=== PATIENT | female | born 1955 | race Caucasian/White ===

== ENCOUNTER → 2019-04-29 | Outpatient (CLI) | payer BC ==
[2019-04-29 10:52] LABS: HCT 39.1 % (34.0-46.0); HGB 13.3 gm/dL (11.4-16.0); MCH 35.2 pg (25.0-35.0); MCV 103.5 fL (80.0-100.0); Macrocytosis Slight; Mean Platelet Volume 5.9; Platelet Count 177 k/uL (150-450); RBC 3.78 m/uL (3.80-5.40); RDW 11.6 % (11.5-15.5); WBC 4.2 k/uL (3.8-10.6)
[2019-04-29 11:46] LABS: Eosinophils # (M) 0.13 k/uL (0-0.7); Lymphocytes # (M) 1.76 k/uL (1.0-4.8); Monocytes # (M) 0.29 k/uL (0-1.0); Neutrophils % (M) 48 %; Nucleated Red Blood Cells 0 /100 WBC (0-0); Total Cells Counted 100
[2019-04-29 16:46] LABS: T4, Free (Free Thyroxine) 1.2 ng/dL (0.80-1.80)
[2019-04-29 16:52] LABS: African American GFR (CKD) 112.4 (60.0-200.0); Albumin/Globulin Ratio 1.6 (1.60-3.17); Anion Gap 6.2 mmol/L (4.00-12.00); Calcium 8.8 mg/dL (8.7-10.3); Carbon Dioxide 27.8 mmol/L (21.6-31.8); Chol/HDL Ratio 2.94; Globulin 2.5 g/dL (1.6-3.3); LDL Cholesterol,Calculated 119.4 mg/dL (0.0-131.0); Potassium 4.6 mmol/L (3.5-5.5); Total Bilirubin 0.7 mg/dL (0.2-1.2); Total Protein 6.5 g/dL (6.2-8.2); VLDL Calculation 12.6 mg/dL (5.00-40.00)
== END | disposition home or self-care (01) ==
LOC: LABWHC1 08:59
PROVIDERS: ATTEND Nurse Practitioner Women's Health
DX: Z00.00 Encounter for general adult medical examination without abnormal findings (principal); I10 Essential (primary) hypertension; E78.00 Pure hypercholesterolemia, unspecified; Z79.899 Other long term (current) drug therapy
CPT/HCPCS: 36415; 80053; 80061; 84439; 84443; 85025

== ENCOUNTER → 2019-05-14 | Outpatient (CLI) | payer BC ==
--- NOTE | 2019-05-20 11:10 | MM ---
Reason for exam: screening (asymptomatic). Last mammogram was performed 2 years and 11 months ago. History: Patient is postmenopausal and is nulliparous. Cyst aspiration. Physical Findings: A clinical breast exam by your physician is recommended on an annual basis and results should be correlated with mammographic findings. MG Screening Mammo w CAD Bilateral CC and MLO view(s) were taken. Prior study comparison: June 22, 2016, mammogram. June 15, 2015, mammogram. The breast tissue is heterogeneously dense. This may lower the sensitivity of mammography. There is chronic nodularity in the right breast laterally. No significant changes when compared with prior studies. ASSESSMENT: Benign, BI-RAD 2 RECOMMENDATION: Routine screening mammogram of both breasts in 1 year.
== END | disposition home or self-care (01) ==
LOC: RADMAMWWP 07:05
PROVIDERS: ATTEND Family Medicine
DX: Z12.31 Encounter for screening mammogram for malignant neoplasm of breast (principal)
CPT/HCPCS: 77067

== ENCOUNTER → 2019-05-15 | Outpatient (CLI) | payer BC ==
--- NOTE | 2019-05-15 09:26 | XR ---
EXAMINATION TYPE: XR foot complete LT DATE OF EXAM: 05/15/2019 CLINICAL HISTORY: pain TECHNIQUE: Frontal, lateral and oblique images of the left foot are obtained. COMPARISON: None. FINDINGS: There is no acute fracture/dislocation evident. The joint spaces appear within normal lopez its. The overlying soft tissue appears unremarkable. IMPRESSION: There is no acute fracture or dislocation. ICD 10 NO FRACTURE, INITIAL EVALUATION
--- NOTE | 2019-05-15 10:02 | XR ---
EXAMINATION TYPE: XR lumbosacral spine min 4V DATE OF EXAM: 05/15/2019 CLINICAL HISTORY: pain COMPARISON: NONE TECHNIQUE: Frontal, lateral, and oblique images of the lumbar spine are obtained. FINDINGS: There are 5 lumbar type vertebral bodies identified. The lumbar spine shows satisfactory alignment without evidence of acute fracture or dislocation. Vertebral body heights are within normal limits. Mild to moderate scattered degenerative disc space narrowing and spondylosis. The overlyin g soft tissue appears unremarkable. IMPRESSION: No acute fracture or dislocation is seen in the lumbar spine.ICD 10 NO FRACTURE, INITIAL EVALUATION
--- NOTE | 2019-05-15 10:38 | BD ---
EXAMINATION TYPE: Axial Bone Density DATE OF EXAM: 05/15/2019 COMPARISON: NONE CLINICAL HISTORY: 63 YR OLD FEMALE....ICD-10 CODE: Z78.0 POST MENOPAUSAL Height: 68 Weight: 189 FRAX RISK QUESTIONS: Family History (Parent hip fracture): YES Glucocorticoids (More than 3mos): YES (Ex: prednisone, prednisolone, methylprednisolone, dexamethasone, and hydrocortisone). History of Fracture in Adulthood: YES RISK FACTORS HISTORY OF: LT HUMERUS AT 61 YRS OLD Family History of Osteoporosis: YES, MOTHER WITH HIP FX AND ARMS Postmenopausal woman: YES AT ABOUT 50 YRS OLD ONLY BCPs LONG AGO Hyperparathyroidism: NO Adrenal Insufficiency: NO MEDICATIONS: Prednisone or other steroids: STEROIDS FOR EYES AND PREDNISONE ON AND OFF FOR ALLERGIES AND INFLAMMAT ION Additional Medications: BP MEDS, MULTIVITAMIN WITH CALCIUM AND D Additional History: CATARACT EYE SURG RECENTLY EXAM MEASUREMENTS: Bone mineral densitometry was performed using the [employer] System. Bone mineral density as measured about the Lumbar spine is: ----- L1-L4(G/cm2): 1.016 T Score Values are as follows: ----- L1: -2.6 ----- L2: -0.8 ----- L3: -1.2 ----- L4: -1.1 ----- L1-L4: -1.4 Bone mineral density FIRST DEXA AT [facility] Bone mineral density about the R hip (g/cm2): 0.906 Bone mineral density about the L hip (g/cm2): 0.903 T Score values are as follows: -----R Neck: -1.2 -----L Neck: -1.1 -----R Total: -0.8 -----L Total: -0.8 Bone mineral density FIRST DEXA AT [facility] FRAX%s: THERE IS A 37.4% CHANCE FOR A MAJOR OSTEOPOROTIC FX AND A 2.0% FOR HIP.....PROBABILITY FOR FX IN 10 YRS TIME IMPRESSION: Osteopenia about the lumbar spine. NOTE: T-SCORE=SD OF THE YOUNG ADULT MEAN.
== END | disposition home or self-care (01) ==
LOC: RADBDWWP 07:28
PROVIDERS: ATTEND Family Medicine
DX: M54.5 Low back pain (principal); M79.672 Pain in left foot; M85.88 Other specified disorders of bone density and structure, other site; Z78.0 Asymptomatic menopausal state
CPT/HCPCS: 72110; 77080

== ENCOUNTER 2019-10-10 11:24 | Inpatient (IN) | payer BC ==
[2019-10-10] MEDS ORDERED: LORazepam 2 MG/ML INJ IV PRN ×3 (12:16)
[2019-10-10] MEDS ORDERED: THIAMINE 100 MG/ML 2 ML VIAL IM STA (12:16)
--- NOTE | 2019-10-10 12:17 | ED ---
General Adult HPI - General Chief complaint: Altered Mental Status Stated complaint: ETOH Time Seen by Provider: 10/10/19 11:35 Source: patient, EMS, RN notes reviewed, old records reviewed Mode of arrival: EMS Limitations: altered mental status - History of Present Illness Initial comments: 64-year-old female presenting for alcohol intoxication, delusional thought pattern. Patient was found outside underneath of her brush. She states that this coming to an end. She makes several comments about politics and yazidi. She does admit to alcohol consumption. She has no pain complaints. She is alert and oriented 2. She does have previous history of alcohol abuse. - Related Data Home Medications Medication Instructions Recorded Confirmed Ibuprofen [Motrin] 200 - 400 mg PO Q6HR PRN 06/17/17 06/17/17 Losartan-Hctz 50-12.5 mg [Hyzaar 1 tab PO DAILY 06/17/17 06/17/17 50-12.5] Multivitamins, Thera [Multivitamin 1 tab PO DAILY 06/17/17 06/17/17 (formulary)] Previous Rx's Medication Instructions Recorded HYDROcodone/APAP 5-325MG [[place] 1 - 2 tab PO Q6HR PRN #14 tab 06/17/17 5-325] Ibuprofen [Motrin] 800 mg PO Q4-6H #30 tab 06/17/17 Allergies Allergy/AdvReac Type Severity Reaction Status Date / Time latex Allergy Rash/Hives Verified 10/10/19 11:30 peanut Allergy Unknown Verified 10/10/19 11:30 perfume Allergy Dyspnea Verified 10/10/19 11:30 Sulfa (Sulfonamide Allergy Rash/Hives Verified 10/10/19 11:30 Antibiotics) venom-wasp Allergy Anaphylaxis Verified 10/10/19 11:30 wheat Allergy Rash/Hives Verified 10/10/19 11:30 Review of Systems ROS Statement: Those systems with pertinent positive or pertinent negative responses have been documented in the HPI. ROS Other: All systems not noted in ROS Statement are negative. Past Medical History Past Medical History: Hypertension, Pneumonia History of Any Multi-Drug Resistant Organisms: None Reported Additional Past Surgical History / Comment(s): D &C, carpal tunnel surgery Past Psychological History: No Psychological Hx Reported Smoking Status: Never smoker Past Alcohol Use History: Occasional Past Drug Use History: None Reported General Exam Limitations: altered mental status General appearance: alert, appears intoxicated Head exam: Present: atraumatic, normocephalic Eye exam: Present: normal appearance, PERRL ENT exam: Present: mucous membranes dry Neck exam: Present: normal inspection. Absent: tenderness, meningismus Respiratory exam: Present: normal lung sounds bilaterally. Absent: respiratory distress, wheezes Cardiovascular Exam: Present: regular rate, normal rhythm GI/Abdominal exam: Present: soft. Absent: distended, tenderness, guarding Extremities exam: Present: normal inspection, normal capillary refill. Absent: pedal edema, calf tenderness Neurological exam: Present: alert, oriented X3, CN II-XII intact. Absent: motor sensory deficit Psychiatric exam: Present: normal affect, normal mood Skin exam: Present: warm, dry, intact. Absent: cyanosis, diaphoretic Course Vital Signs 10/10/19 10/10/19 10/10/19 11:30 12:38 12:41 Temperature 97.0 F L Pulse Rate 85 80 78 Respiratory 20 18 16 Rate Blood Pressure 163/99 160/84 104/60 O2 Sat by Pulse 98 98 97 Oximetry Medical Decision Making - Medical Decision Making 64-year-old female presenting with alcohol intoxication, bizarre behavior. Patient is intoxicated on exam, her thoughts are quite delusional. Uncertain of her baseline mental status, uncertain if she has a history of psychiatric disease. This may be related to alcohol intoxication. Alcohol level is 330. She is clinically dehydrated. She is placed on IV hydration, given thiamine. Placed on a CIWA scale. She will be admitted, case is discussed with Dr. Adair who will admit. Psychiatry has been placed on consult. - Lab Data Result diagrams: 10/10/19 12:15 Lab Results 10/10/19 10/10/19 Range/Units 12:15 12:24 Sodium 146 H (137-145) mmol/L Potassium 4.6 (3.5-5.1) mmol/L Chloride 107 (98-107) mmol/L Carbon Dioxide 31 H (22-30) mmol/L Anion Gap 8 mmol/L BUN 11 (7-17) mg/dL Creatinine 0.56 (0.52-1.04) mg/dL Est GFR (CKD-EPI)AfAm >90 (>60 ml/min/1.73 sqM) Est GFR (CKD-EPI)NonAf >90 (>60 ml/min/1.73 sqM) Glucose 112 H (74-99) mg/dL Calcium 8.9 (8.4-10.2) mg/dL Total Bilirubin 0.3 (0.2-1.3) mg/dL AST 57 H (14-36) U/L ALT 61 H (4-34) U/L Alkaline Phosphatase 70 (38-126) U/L Total Protein 8.0 (6.3-8.2) g/dL Albumin 4.4 (3.5-5.0) g/dL Urine Color Light Yellow Urine Appearance Clear (Clear) Urine pH 5.5 (5.0-8.0) Ur Specific [place] 1.004 (1.001-1.035) Urine Protein Negative (Negative) Urine Glucose (UA) Negative (Negative) Urine Ketones Negative (Negative) Urine Blood Negative (Negative) Urine Nitrite Negative (Negative) Urine Bilirubin Negative (Negative) Urine Urobilinogen <2.0 (<2.0) mg/dL Ur Leukocyte Esterase Large H (Negative) Urine RBC 3 (0-5) /hpf Urine WBC 6 H (0-5) /hpf Ur Squamous Epith Cells 2 (0-4) /hpf Urine Bacteria Rare H (None) /hpf Serum Alcohol 334 H* mg/dL Disposition Clinical Impression: Alcoholic intoxication, Altered mental status Disposition: ADMITTED IP TO THIS [facility] Condition: Stable Is patient prescribed a controlled substance at d/c from ED?: No Referrals: Alex Monet Jr, [Primary Care Provider] - 1-2 days Decision to Admit Reason: Admit from EC Decision Date: 10/10/19 Decision Time: 13:19
[2019-10-10 12:44] LABS: ALT 61 U/L (4-34); AST 57 U/L (14-36); African American GFR (CKD) >90 (>60 ml/min/1.73 sqM); Albumin 4.4 g/dL (3.5-5.0); Alkaline Phosphatase 70 U/L (38-126); Anion Gap 8 mmol/L; Blood Urea Nitrogen 11 mg/dL (7-17); Calcium 8.9 mg/dL (8.4-10.2); Carbon Dioxide 31 mmol/L (22-30); Chloride 107 mmol/L (98-107); Glucose 112 mg/dL (74-99); Non-African American GFR(CKD) >90 (>60 ml/min/1.73 sqM); Potassium 4.6 mmol/L (3.5-5.1); Sodium 146 mmol/L (137-145); Total Bilirubin 0.3 mg/dL (0.2-1.3)
[2019-10-10 12:55] LABS: Appearance,Urine Clear (Clear); Bacteria,Urine Rare /hpf; Bilirubin,Urine Negative (Negative); Blood,Urine Negative (Negative); Color,Urine Light Yellow; Glucose,Urine (UA) Negative (Negative); Ketones,Urine Negative (Negative); Leukocyte Esterase,Urine Large (Negative); Nitrite,Urine Negative (Negative); PH, Urine 5.5 (5.0-8.0); Protein,Urine Negative (Negative); RBC,Urine 3 /hpf (0-5); Specific Gravity,Urine 1.004 (1.001-1.035); Squamous Epithelial Cell,Urine 2 /hpf (0-4); Urobilinogen,Urine <2.0 mg/dL (<2.0); WBC,Urine 6 /hpf (0-5)
[2019-10-10 13:00] LABS: Alcohol 334 mg/dL
--- NOTE | 2019-10-10 13:05 | CT ---
EXAMINATION TYPE: CT brain wo con DATE OF EXAM: 10/10/2019 COMPARISON: None INDICATION: Altered mental status, ETOH DLP: 1099.4 mGycm, Automated exposure control for dose reduction was used. CONTRAST: None CT of the brain is performed utilizing 3 mm thick sections through the posterior fossa and 3 mm thick sections through the remaining calvarium. Study is performed within 24 hours of arrival to the hosp [facility]. No abnormal hyperdensity is present to suggest an acute intracranial hemorrhage. No mass lesion is evident. No acute infarcts are evident. Ventricles and sulci are appropriate for the patient age. Paranasal sinuses and mastoid air cells within the [id number] are clear. IMPRESSIONS: 1. Normal CT Brain
[2019-10-10] MEDS ORDERED: NALOXONE 0.4 MG/ML 1 ML VIAL IV PRN (13:17)
[2019-10-10 13:23] LABS: Amphetamine Screen,Urine Not Detected (NotDetected); Barbiturate Screen,Urine Not Detected (NotDetected); Benzodiazepines Screen,Urine Not Detected (NotDetected); Cocaine Screen,Urine Not Detected (NotDetected); Methadone Screen, Urine Not Detected (NotDetected); Opiate Screen,Urine Not Detected (NotDetected); Oxycodone Screen, Urine Not Detected (NotDetected); Phencyclidine Screen,Urine Not Detected (NotDetected); Tricyclic Antidepressant,Urine Not Detected (NotDetected); Urn Cannabinoid Scrn Not Detected (NotDetected)
[2019-10-10 13:33] LABS: HCT 44.2 % (34.0-46.0); HGB 14.8 gm/dL (11.4-16.0); MCH 33.9 pg (25.0-35.0); MCHC 33.5 g/dL (31.0-37.0); Mean Platelet Volume 6.4; Platelet Count 275 k/uL (150-450); RBC 4.38 m/uL (3.80-5.40); RDW 11.5 % (11.5-15.5); WBC 3.8 k/uL (3.8-10.6)
[2019-10-10 14:11] LABS: Eosinophils # (M) 0.08 k/uL (0-0.7); Lymphocytes # (M) 2.36 k/uL (1.0-4.8); Monocytes # (M) 0.19 k/uL (0-1.0); Neutrophils # (M) 1.18 k/uL (1.3-7.7); Neutrophils % (M) 31 %; Nucleated Red Blood Cells 0 /100 WBC (0-0); Total Cells Counted 100
--- NOTE | 2019-10-10 16:15 | P.HPIM ---
History of Present Illness H&P Date: 10/10/19 Chief Complaint: alcohol intoxication 64-year-old patient found outside under pierce. Presented emergency room delusional thoughts with apparent alcohol intoxitcation. she was oriented 2 Review of Systems ROS unobtainable: due to mental status Past Medical History Past Medical History: Hypertension, Pneumonia History of Any Multi-Drug Resistant Organisms: None Reported Additional Past Surgical History / Comment(s): D &C, carpal tunnel surgery Past Psychological History: No Psychological Hx Reported Smoking Status: Never smoker Past Alcohol Use History: Occasional Past Drug Use History: None Reported Medications and Allergies Home Medications Medication Instructions Recorded Confirmed Type Furosemide [Lasix] 20 mg PO DAILY 10/10/19 10/10/19 History Ibuprofen [Motrin] 800 mg PO Q8H 10/10/19 10/10/19 History Metoprolol Succinate (ER) [Toprol 50 mg PO DAILY 10/10/19 10/10/19 History Xl] Allergies Allergy/AdvReac Type Severity Reaction Status Date / Time latex Allergy Rash/Hives Verified 10/10/19 14:08 peanut Allergy Unknown Verified 10/10/19 14:08 perfume Allergy Dyspnea Verified 10/10/19 14:08 Sulfa (Sulfonamide Allergy Rash/Hives Verified 10/10/19 14:08 Antibiotics) venom-wasp Allergy Anaphylaxis Verified 10/10/19 14:08 wheat Allergy Rash/Hives Verified 10/10/19 14:08 Physical Exam Vitals: Vital Signs Temp Pulse Pulse Resp BP BP Pulse Ox 10/10/19 14:33 98.2 F 101 H 20 141/98 95 10/10/19 14:07 72 18 110/61 97 10/10/19 12:41 78 16 104/60 97 10/10/19 12:38 80 18 160/84 98 10/10/19 11:30 97.0 F L 85 20 163/99 98 Intake and Output 10/10/19 10/10/19 10/10/19 06:59 14:59 22:59 Other: Weight 160 kg - Constitutional General appearance: disheveled, mild distress - EENT Eyes: PERRLA ENT: normal oropharynx - Neck Carotids: right: upstroke delayed - Respiratory Respiratory: bilateral: CTA - Cardiovascular Rhythm: regular Heart sounds: normal: S1, S2 - Gastrointestinal General gastrointestinal: normal bowel sounds - Neurologic Neurologic: CNII-XII intact - Musculoskeletal Musculoskeletal: strength equal bilaterally - Psychiatric delusional thoughts, oriented 2 Results CBC & Chem 7: 10/10/19 12:15 10/10/19 12:15 Labs: Abnormal Lab Results - Last 24 Hours (Table) 10/10/19 10/10/19 10/10/19 Range/Units 12:15 12:15 12:24 MCV 101.0 H (80.0-100.0) fL Neutrophils # (Manual) 1.18 L (1.3-7.7) k/uL Sodium 146 H (137-145) mmol/L Carbon Dioxide 31 H (22-30) mmol/L Glucose 112 H (74-99) mg/dL AST 57 H (14-36) U/L ALT 61 H (4-34) U/L Ur Leukocyte Esterase Large H (Negative) Urine WBC 6 H (0-5) /hpf Urine Bacteria Rare H (None) /hpf Serum Alcohol 334 H* mg/dL Thrombosis Risk Factor Assmnt - DVT/VTE Prophylaxis DVT/VTE Prophylaxis: Low risk, early ambulation encouraged Assessment and Plan (1) Alcoholic intoxication Current Visit: Yes Status: Acute Code(s): F10.929 - ALCOHOL USE, UNSPECIFIED WITH INTOXICATION, UNSPECIFIED SNOMED Code(s): 68506007 (2) Altered mental status Current Visit: Yes Status: Acute Code(s): R41.82 - ALTERED MENTAL STATUS, UNSPECIFIED SNOMED Code(s): 182602899 Plan: we'll fofollow CWA protocol for alcohol intoxication we'll initiate multivitamin IV fluid We'll continue to monitor mental status Time with Patient: Greater than 30
[2019-10-10] MEDS: THIAMINE 100 MG TAB PO SCH (17:13)
[2019-10-10] MEDS: MULTIVITAMINS, THERA 1 EACH TAB PO SCH (17:13)
[2019-10-10] MEDS: SODIUM CHLORIDE 0.9% 1,000 ML IV SCH (20:35)
[2019-10-11 05:11] VITALS: TEMP 98.2
[2019-10-11 06:32] LABS: Basophils % (A) 1 %; Eosinophils # (A) 0.1 k/uL (0-0.7); Eosinophils % (A) 1 %; HCT 42.7 % (34.0-46.0); HGB 14.3 gm/dL (11.4-16.0); Lymphocytes # (A) 1.6 k/uL (1.0-4.8); Lymphocytes % (A) 25 %; MCH 33.7 pg (25.0-35.0); MCHC 33.5 g/dL (31.0-37.0); MCV 100.6 fL (80.0-100.0); Mean Platelet Volume 7.1; Monocytes # (A) 0.3 k/uL (0-1.0); Monocytes % (A) 5 %; Neutrophils # (A) 4.2 k/uL (1.3-7.7); Neutrophils % (A) 67 %; Platelet Count 265 k/uL (150-450); RBC 4.25 m/uL (3.80-5.40); RDW 11.5 % (11.5-15.5); WBC 6.3 k/uL (3.8-10.6)
[2019-10-11 06:57] LABS: ALT 51 U/L (4-34); AST 50 U/L (14-36); African American GFR (CKD) >90 (>60 ml/min/1.73 sqM); Alkaline Phosphatase 86 U/L (38-126); Anion Gap 9 mmol/L; Blood Urea Nitrogen 9 mg/dL (7-17); Calcium 8.9 mg/dL (8.4-10.2); Carbon Dioxide 27 mmol/L (22-30); Chloride 101 mmol/L (98-107); Glucose 124 mg/dL (74-99); Magnesium 1.6 mg/dL (1.6-2.3); Non-African American GFR(CKD) >90 (>60 ml/min/1.73 sqM); Sodium 137 mmol/L (137-145); Total Bilirubin 0.8 mg/dL (0.2-1.3); Total Protein 7.5 g/dL (6.3-8.2)
[2019-10-11] MEDS: MULTIVITAMINS, THERA 1 EACH TAB PO SCH (07:54)
[2019-10-11] MEDS: THIAMINE 100 MG TAB PO SCH (07:54)
[2019-10-11] MEDS ORDERED: ALPRAZolam 0.25 MG TAB PO PRN (10:50)
[2019-10-11] MEDS ORDERED: METOPROLOL SUCCINATE (ER) 50 MG TAB.ER.24H PO SCH (11:00)
[2019-10-11] MEDS: SODIUM CHLORIDE 0.9% 1,000 ML IV SCH (11:23)
--- NOTE | 2019-10-11 11:54 | P.DS ---
Providers Date of admission: 10/10/19 13:17 Attending physician: David Adair Consults: 10/10/19 13:17 Consult Physician Routine Consulting Provider: Walker De La Torre Consult Reason/Comments: Alcohol intoxication, delusional thoughts Do you want consulting provider notified?: Yes Primary care physician: Alex Monet - Discharge Diagnosis(es) (1) Alcoholic intoxication Current Visit: Yes Status: Acute (2) Altered mental status Current Visit: Yes Status: Acute Patient Condition at Discharge: Stable Plan - Discharge Summary Discharge Rx Participant: Yes New Discharge Prescriptions: Continue Metoprolol Succinate (ER) [Toprol XL] 50 mg PO DAILY Ibuprofen [Motrin] 800 mg PO Q8H Furosemide [Lasix] 20 mg PO DAILY Discharge Medication List Furosemide [Lasix] 20 mg PO DAILY 10/10/19 [History] Ibuprofen [Motrin] 800 mg PO Q8H 10/10/19 [History] Metoprolol Succinate (ER) [Toprol XL] 50 mg PO DAILY 10/10/19 [History] Follow up Appointment(s)/Referral(s): Alex Monet Jr, DO [Primary Care Provider] - 1-2 days Discharge Disposition: HOME SELF-CARE
--- NOTE | 2019-10-11 12:11 | P.DS ---
Providers Date of admission: 10/10/19 13:17 Expected date of discharge: 10/11/19 Attending physician: David Adair Consults: 10/10/19 13:17 Consult Physician Routine Consulting Provider: Walker De La Torre Consult Reason/Comments: Alcohol intoxication, delusional thoughts Do you want consulting provider notified?: Yes Primary care physician: Alex Monet - Discharge Diagnosis(es) (1) Alcoholic intoxication History of Present Illness Chief Complaint: alcohol intoxication 64-year-old patient found outside under pierce. Presented emergency room delusional thoughts with apparent alcohol intoxitcation. she was oriented 2 10/11/19 patient sitting up in bed alert and oriented 3, denies any thoughts of self-harm or harming others. She is emotional this time for drinking too much and would like to stop drinking. She was to drinking about half pint daily incentive has become a problem for her she needs to take care of her dog and her. Vital signs old to stable with her anti-hypertensive medications restarted and we will check blood pressure is controlled for discharge. Alcohol level be drawn signs less than 100 we will also discharge. She will follow up office in 1-2 days. Current Visit: Yes Status: Acute (2) Altered mental status Current Visit: Yes Status: Acute Patient Condition at Discharge: Stable Plan - Discharge Summary Discharge Rx Participant: Yes New Discharge Prescriptions: Continue Metoprolol Succinate (ER) [Toprol XL] 50 mg PO DAILY Ibuprofen [Motrin] 800 mg PO Q8H Furosemide [Lasix] 20 mg PO DAILY Discharge Medication List Furosemide [Lasix] 20 mg PO DAILY 10/10/19 [History] Ibuprofen [Motrin] 800 mg PO Q8H 10/10/19 [History] Metoprolol Succinate (ER) [Toprol XL] 50 mg PO DAILY 10/10/19 [History] Follow up Appointment(s)/Referral(s): Alex Monet Jr, [Primary Care Provider] - 1-2 days Discharge Disposition: HOME SELF-CARE Plan of Treatment: We'll restart her home hypertensive medications metoprolol We will draw an ALCOHOL level if less than 100. Discharge Follow-up office 1-2 days and that family also discussed with her in regards to treatment programs for her problem drinking
[2019-10-11 14:08] VITALS: BP 151/92; PULSE 89; RESP 18
== END 2019-10-11 15:56 | disposition home or self-care (01) | DRG 897 ==
LOC: EC 11:24 → 5NMEDONC 13:17
PROVIDERS: ADMIT Family Medicine; ATTEND Family Medicine
DX: F10.129 Alcohol abuse with intoxication, unspecified (principal); F22 Delusional disorders; I10 Essential (primary) hypertension; Y90.8 Blood alcohol level of 240 mg/100 ml or more; E86.0 Dehydration; R41.82 Altered mental status, unspecified; Z79.899 Other long term (current) drug therapy; Z91.030 Bee allergy status; Z91.040 Latex allergy status; Z91.010 Allergy to peanuts; Z88.2 Allergy status to sulfonamides; Z91.018 Allergy to other foods; Z91.09 Other allergy status, other than to drugs and biological substances; Z87.01 Personal history of pneumonia (recurrent)
CPT/HCPCS: 36415; 70450; 80053; 80306; 80320; 81001; 82075; 83735; 85025; 99285

== ENCOUNTER → 2024-07-15 | Outpatient (CLI) | payer MEDICARE ==
--- NOTE | 2024-07-15 15:27 | XR ---
EXAMINATION TYPE: XR ankle complete LT, XR foot complete LT DATE OF EXAM: 07/15/2024 CLINICAL HISTORY: Pain TECHNIQUE: Frontal, lateral and oblique images of the left ankle and foot are obtained. COMPARISON: None. FINDINGS: Osseous structures are demineralized. There is no acute fracture/dislocation evident in th e left ankle. The ankle mortise appears within normal limits. There is no acute fracture or dislocat ion evident in the left foot. Some flexion in the toes is seen. The joint spaces in the left foot ar e preserved. Overlying soft tissue is unremarkable. IMPRESSION: As above. [facility], , 07/15/2024 3:24 PM
--- NOTE | 2024-07-15 15:28 | XR ---
EXAMINATION TYPE: XR lumbar spine 2 or 3V DATE OF EXAM: 07/15/2024 CLINICAL HISTORY: Pain TECHNIQUE: Frontal and lateral images of the lumbar spine are obtained. COMPARISON: Prior lumbar spine x-rays May 15, 2019 FINDINGS: There are 5 lumbar type vertebral bodies redemonstrated. The lumbar spine shows stable an d satisfactory alignment. Vertebral body heights remain within normal limits. Stable mild disc space narrowing at L4-L5 and L5-S1 levels. Stable mild to moderate multilevel anterior and lateral spurrin g. The overlying soft tissue appears unremarkable. IMPRESSION: As above. [facility], , 07/15/2024 3:26 PM
--- NOTE | 2024-07-15 15:40 | BD ---
EXAMINATION TYPE: Axial Bone Density DATE OF EXAM: 07/15/2024 CLINICAL HISTORY: 68 years old Female. ICD-10 CODE: M85.80 DISORDER OF BONE DENSITY , Additional His tory: Height: 67.5 in Weight: 193 lbs FRAX RISK QUESTIONS: Family History (Parent hip fracture): yes mother History of Fracture in Adulthood: lt foot fx 22; cristofer humerus fx approximate age 58; EXAM MEASUREMENTS: Bone mineral densitometry was performed using the [employer] System. Bone mineral density as measured about the Lumbar spine is: ----- L1-L4(G/cm2): 0.984 T Score Values are as follows: ----- L1: -2.7 ----- L2: -1.7 ----- L3: -0.7 ----- L4: -1.7 ----- L1-L4: -1.6 Z Score Values are as follows: ----- L1: -1.8 ----- L2: -0.8 ----- L3: 0.2 ----- L4: -0.8 ----- L1-L4: -0.7 Bone mineral density has: Decreased -3.1% since study of: 05/15/2019 Bone mineral density about the R hip (g/cm2): 0.900 Bone mineral density about the L hip (g/cm2): 0.889 T Score values are as follows: -----R Neck: -0.9 -----L Neck: -1.2 -----R Total: -0.9 -----L Total: -0.9 Z Score values are as follows: -----R Neck: 0.2 -----L Neck: -0.1 -----R Total: 0.0 -----L Total: -0.1 Bone mineral density has: Decreased -1.2% since study of: 05/15/2019 FRAX%s: The graph provided illustrates a 34.5% chance for a major osteoporotic fx and a 5.0% chance f or the hips probability for fx in 10 years time. IMPRESSION: Osteopenia (T Score between -2.5 and -1). There is slightly increased risk of fracture and the patient may be considered for treatment. Re-Screen 2-5 years. NOTE: T-SCORE=SD OF THE YOUNG ADULT MEAN. [facility], , 07/15/2024 3:38 PM
== END | disposition home or self-care (01) ==
LOC: RADBDWWP 14:00
PROVIDERS: ATTEND Family Medicine
DX: M85.89 Other specified disorders of bone density and structure, multiple sites (principal); M54.32 Sciatica, left side; M25.572 Pain in left ankle and joints of left foot; R11.10 Vomiting, unspecified; M79.672 Pain in left foot
CPT/HCPCS: 72100; 77080

== ENCOUNTER → 2024-09-25 | Outpatient (CLI) | payer MEDICARE ==
--- NOTE | 2024-09-27 16:18 | MR ---
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 COMPARISONS: Lumbar spine radiograph 07/15/2024, lumbosacral spine radiographs 05/15/2019. TECHNIQUE: Multi planar, multi sequence imaging was performed utilizing: T1-weighted, T2-weighted, a nd turbo inversion recovery imaging of the lumbar spine. The patient was not given contrast. FINDINGS: The lumbar vertebral bodies do have preserved heights and alignment. Diffusely heterogenou s bone marrow signal. No significant disc desiccation or height loss. No abnormal STIR signal. The c onus medullaris and the distal spinal cord do appear unremarkable with regards to their signal intens ity and morphology. T11-T12: Small central disc protrusion with minimal effacement of the anterior thecal sac. No signifi cant central canal stenosis. No neuroforaminal stenosis. T12-L1: No significant disc pathology is identified. The spinal canal and neural foramen are patent L1-L2: No significant disc pathology is identified. The spinal canal and neural foramen are patent. L2-L3: Eccentric left minimal left disc bulge. Mild bilateral facet arthropathy with ligamentum flav um buckling. No central canal or neural foraminal stenosis. L3-L4: Minimal disc bulge. Ligamentum flavum buckling with minimal facet arthropathy. The spinal can al and neural foramen are patent. L4-L5: Minimal disc bulge. Ligamentum flavum buckling with minimal facet arthropathy. The spinal can al and neural foramen are patent L5-S1: Right lateral osteophyte. Broad-based disc bulge with minimal effacement of the anterior theca l sac. No significant central canal stenosis. Bilateral facet arthropathy. No left neural foraminal s tenosis. Mild right neural foraminal stenosis. Other findings: Right hepatic lobe 1.1 cm T2 hyperintense cyst with thin septation. Right renal T2 hy perintense 0.5 cm cyst. IMPRESSION: 1. No evidence of significant spinal canal stenosis. 2. Mild multilevel disc degeneration with associated osteoarthritic changes as described above. 3. Nonspecific diffuse heterogenous bone marrow signal which can be seen with a variety of etiologies including benign and malignant processes. Consider further workup. [facility], , 09/27/2024 4:16 PM
== END | disposition home or self-care (01) ==
LOC: RADMRIMAIN 16:22
PROVIDERS: ATTEND Physical Medicine & Rehabilitation
DX: M48.062 Spinal stenosis, lumbar region with neurogenic claudication (principal); M51.17 Intervertebral disc disorders with radiculopathy, lumbosacral region; M41.26 Other idiopathic scoliosis, lumbar region; M47.27 Other spondylosis with radiculopathy, lumbosacral region
CPT/HCPCS: 72148